=== PATIENT | female | born 1950 | race Caucasian/White ===

== ENCOUNTER → 2018-08-21 | Outpatient (CLI) | payer MEDICARE ==
[~2018-08-21] VITALS: Ht 167.6 cm; Wt 65.7 kg
[~2018-08-21] MED LIST: DAZIDOX10 MG PO; FENTANYL 25 MCG TD
[2018-08-21 11:31] VITALS: BP 164/81; PULSE 56
[2018-08-21 13:05] VITALS: BP 153/55; PULSE 96
[2018-08-21 13:38] LABS: PERITONEAL -POLYMORPHONUCLEAR 18.1 % (0-25); PERITONEAL FLUID RBC 3000 /mm3 (0-0)
== END ==
LOC: COL.RAD 11:13
PROVIDERS: Internal Medicine
DX: C54.1 Malignant neoplasm of endometrium (principal); D70.1 Agranulocytosis secondary to cancer chemotherapy; R18.8 Other ascites; Z17.0 Estrogen receptor positive status [ER+]